=== PATIENT | female | born 1960 | race Caucasian/White ===

== ENCOUNTER 2020-06-05 13:40 | Inpatient (IN) | payer OTHER ==
[~2020-06-05] VITALS: Ht 160 cm; Wt 68.0 kg
[2020-06-05] MEDS ORDERED: ONDANSETRON 4 MG/2 ML VIAL ONE (14:00)
[2020-06-05] MEDS ORDERED: ONDANSETRON 4 MG/2 ML VIAL IV ONE (14:00)
[2020-06-05] MEDS ORDERED: IV NORMAL SALINE 1000 ML BAG IV ONE (14:00)
[2020-06-05] MEDS ORDERED: PANTOPRAZOLE SODIUM 40 MG VIAL ONE (14:00)
[2020-06-05] MEDS ORDERED: PANTOPRAZOLE SODIUM 40 MG VIAL IV ONE (14:00)
[2020-06-05 14:05] LABS: BASOPHILS % (AUTO) 0.4 % (0.0-2.0); HEMATOCRIT 49.4 % (31.2-41.9); HEMOGLOBIN 16.5 g/dL (10.9-14.3); LYMPHOCYTES # (AUTO) 1.4 K/uL (20.0-40.0); LYMPHOCYTES % (AUTO) 13.3 % (20.5-51.5); MEAN CORPUSCULAR HEMOGLOBIN 29.9 uug (24.7-32.8); MEAN CORPUSCULAR HGB CONC 33 g/dL (32.3-35.6); MEAN CORPUSCULAR VOLUME 89.8 fL (75.5-95.3); MONOCYTES # (AUTO) 0.3 K/uL (2.0-10.0); MONOCYTES % (AUTO) 3.1 % (0.0-11.0); NEUTROPHILS # (AUTO) 8.4 K/uL (1.8-8.9); NEUTROPHILS % (AUTO) 83.2 % (38.5-71.5); PLATELET COUNT (AUTO) 335 K/uL (179-408); WHITE BLOOD COUNT (AUTO) 10.2 K/uL (3.8-11.8)
[2020-06-05 14:11] LABS: CREATININE 0.9 mg/dL (0.6-1.3); POTASSIUM 4.4 mmol/L (3.5-5.1)
[2020-06-05] MEDS ORDERED: MAG HYDROX/AL HYDROX/SIMETH 30 ML LIQUID UDC PO ONE (14:15)
[2020-06-05] MEDS ORDERED: LIDOCAINE VISCUS 2% 15 ML UDC MM ONE (14:15)
[2020-06-05 14:16] LABS: BILIRUBIN,DIRECT 0.1 mg/dL (0.0-0.2); BILIRUBIN,TOTAL 0.4 mg/dL (0.2-1.0); TOTAL PROTEIN, SERUM 7.9 g/dL (6.4-8.2)
[2020-06-05] MEDS ORDERED: LIDOCAINE VISCUS 2% 15 ML UDC ONE (14:26)
[2020-06-05] MEDS ORDERED: MAG HYDROX/AL HYDROX/SIMETH 30 ML LIQUID UDC ONE (14:26)
--- NOTE | 2020-06-05 14:30 | NUR ---
PT IS IN ROOM #1B. DR CRUZ EVALUATED THE PT.
[2020-06-05] MEDS ORDERED: MORPHINE SULFATE 2 MG/1 ML DISP.SYRIN ONE (14:59)
[2020-06-05] MEDS ORDERED: MORPHINE SULFATE 2 MG/1 ML DISP.SYRIN IV ONE (15:00)
[2020-06-05] MEDS ORDERED: HYDROCODONE/APAP 5-325MG TABLET PO ONE (15:30)
[2020-06-05] MEDS ORDERED: HYDROCODONE/APAP 5-325MG TABLET ONE (15:41)
[2020-06-05] MEDS ORDERED: MORPHINE SULFATE 4 MG/1 ML DISP.SYRIN ONE ×2 (16:30→17:15)
[2020-06-05] MEDS ORDERED: MORPHINE SULFATE 4 MG/1 ML DISP.SYRIN IM ONE (16:30)
[2020-06-05] MEDS ORDERED: MORPHINE SULFATE 4 MG/1 ML DISP.SYRIN IV ONE (17:00)
--- NOTE | 2020-06-05 18:30 | NUR ---
DR CRUZ SPOKE TO DR ROBLERO ABOUT PT's ADMISSION TO [facility] TO M/S FLOOR. PT IS GOING TO BE ADMITTED TO M/S ROOM #319.
[2020-06-05] MEDS ORDERED: IV NS 1000 ML 1,000 ML IV PRN (19:01)
--- NOTE | 2020-06-05 19:01 | NUR ---
REPORT GIVEN TO KINZA JUÁREZ.
--- NOTE | 2020-06-05 19:03 | NUR ---
Patient noted sitting up in bed and talking on perosnaal cell phone, no signs of distress noted at this time, no complaints of pain at this time
[2020-06-05] MEDS ORDERED: MAGNESIUM HYDROXIDE 30 ML LIQUID UDC PO PRN (19:15)
[2020-06-05] MEDS ORDERED: MORPHINE SULFATE 2 MG/1 ML DISP.SYRIN IV PRN (19:15)
[2020-06-05] MEDS ORDERED: ONDANSETRON 4 MG/2 ML VIAL IV PRN (19:15)
[2020-06-05] MEDS ORDERED: HYDROCODONE/APAP 5-325MG TABLET PO PRN (19:15)
[2020-06-05] MEDS ORDERED: ACETAMINOPHEN 325 MG TABLET PO PRN (19:15)
[2020-06-05] MEDS ORDERED: Z GUARD REMEDY PASTE 57 GM TUBE TOP PRN (19:15)
--- NOTE | 2020-06-05 19:50 | NUR ---
report given to Will KINZA of medsurgical/telemetry unit
--- NOTE | 2020-06-05 20:10 | NUR ---
Pt. admitted to [facility] , under care of ISIDRO Moreno Belongs List completed and all belongs sentwith patient
--- NOTE | 2020-06-05 20:15 | NUR ---
ADMITTED PATIENT ON MED SURG FLOOR, UNDER THE CARE OF MAGDIEL ROBLERO NP. PATIENT ALERT ORIENTED, CONTINENT, COMPLAIN OF ABDOMINAL PAIN, BUT NO FURTHER EPISODE OF NAUSEA VOMITING, WILL MEDICATE PATIENT ORDERED. CONT TO MONITOR.
[2020-06-05 20:59] VITALS: BP 107/56
[2020-06-05] MEDS ORDERED: ENOXAPARIN SODIUM 40 MG/0.4 ML DISP.SYRIN SQ SCH (21:00)
[2020-06-06 04:52] VITALS: BP 90/45
--- NOTE | 2020-06-06 05:50 | NUR ---
PATIENT SLEPT MOST OF THE NIGHT, NO FURTHER COMPLAIN OF ABDOMINAL PAIN, CONT TO MONITOR.
[2020-06-06 06:38] LABS: BASOPHILS % (AUTO) 0.5 % (0.0-2.0); EOSINOPHILS # (AUTO) 0.1 K/uL (0.0-0.7); EOSINOPHILS % (AUTO) 1.1 % (0.0-7.0); HEMATOCRIT 41.8 % (31.2-41.9); HEMOGLOBIN 14.1 g/dL (10.9-14.3); LYMPHOCYTES # (AUTO) 3.3 K/uL (20.0-40.0); LYMPHOCYTES % (AUTO) 32.7 % (20.5-51.5); MEAN CORPUSCULAR HEMOGLOBIN 30.6 uug (24.7-32.8); MEAN CORPUSCULAR HGB CONC 34 g/dL (32.3-35.6); MEAN CORPUSCULAR VOLUME 90.8 fL (75.5-95.3); MONOCYTES % (AUTO) 9.7 % (0.0-11.0); NEUTROPHILS # (AUTO) 5.6 K/uL (1.8-8.9); PLATELET COUNT (AUTO) 294 K/uL (179-408); RED BLOOD CELL COUNT(AUTO) 4.61 MIL/uL (3.63-4.92); WHITE BLOOD COUNT (AUTO) 10.1 K/uL (3.8-11.8)
[2020-06-06 06:53] LABS: CREATININE 0.9 mg/dL (0.6-1.3); MAGNESIUM 1.7 mg/dL (1.8-2.4); PHOSPHOROUS 2.7 mg/dL (2.5-4.9); POTASSIUM 3.6 mmol/L (3.5-5.1)
[2020-06-06 07:00] LABS: THYROID STIMULATING HORMONE 2.189 mIU/mL (0.358-3.740)
[2020-06-06] MEDS ORDERED: PANTOPRAZOLE SODIUM 40 MG VIAL IV SCH (09:00)
[2020-06-06 11:39] VITALS: BP 106/57
--- NOTE | 2020-06-06 12:16 | NUR ---
Received patient awake in bed in stable condition. Tylenol given for headache complaint. patient for discharge to home as order by ISIDRO Moreno. not in distress. Patient spoke to BACK ROLLER Tiffanie and explain discharge summary. Patient verbalize that she feels she is not ready to be discharge but ask certificate to be ready for work on saturday. Patient spoke to the scientific writer and BACK ROLLER Tiffanie regarding the discharge order. Patient denies pain/discomfort.
--- NOTE | 2020-06-06 16:20 | NUR ---
Patient discharge to home around 1540 via private car in stable condition. Remove IV heplock prior to discharge. Patient discharge summary, excuse for work and discharge instruction given.
== END 2020-06-06 15:40 | disposition home or self-care (01) | DRG 392 ==
LOC: ER 14:00 → MEDSURG3 19:59
PROVIDERS: ADMIT Nurse Practitioner Acute Care; ATTEND Nurse Practitioner Acute Care
DX: A08.4 Viral intestinal infection, unspecified (principal); K57.30 Diverticulosis of large intestine without perforation or abscess without bleeding; Z90.49 Acquired absence of other specified parts of digestive tract; F17.210 Nicotine dependence, cigarettes, uncomplicated; F12.90 Cannabis use, unspecified, uncomplicated
CPT/HCPCS: 36415; 70030-TC; 71045; 83690; 83735; 84100; 84443; 85025; 93005; A4663; C9113; G0378; J1650; J2270; J2405; J7030